=== PATIENT | female | born 2000 | race Two or more races ===

== ENCOUNTER 2022-05-17 10:43 | Outpatient (REF) | payer OTHER, SELFPAY ==
--- NOTE | 2022-05-17 11:15 | ECG_ITS ---
Test Reason : Z01.810 Z01.818 Z01.811 Blood Pressure : / mmHG Vent. Rate : 058 BPM Atrial Rate : 058 BPM P-R Int : 138 ms QRS Dur : 070 ms QT Int : 382 ms P-R-T Axes : 046 057 045 degrees QTc Int : 374 ms Normal sinus rhythm Normal EKG Referred By: Apollo Gomez Electronically Signed By:MONA WILLETT
[2022-05-17 12:05] LABS: Partial Thromboplastin Time 33.3 SEC (26.0-36.4)
[2022-05-17 12:46] LABS: HIV AB/AG Nonreactive (Nonreactive); HIV Num 1 0.06 S/CO (0.00-0.99)
== END 2022-05-17 10:44 | disposition home or self-care (01) ==
LOC: HO.LAB 10:43
PROVIDERS: Visit Provider Surgery Plastic and Reconstructive Surgery
DX: Z01.818 Encounter for other preprocedural examination (principal); Z11.4 Encounter for screening for human immunodeficiency virus [HIV]
CPT/HCPCS: 36415; 85730; 87389; 93005; 93010